=== PATIENT | female | born 1990 | race Caucasian/White ===

== ENCOUNTER → 2017-04-16 | Outpatient (REF) | payer OTHER ==
[2017-04-16 23:38] LABS: CHLAMYDIA DNA AMPLIFICATION NEGATIVE (NEGATIVE); GC DNA AMPLIFICATION NEGATIVE (NEGATIVE)
== END ==
LOC: M LAB REF 17:07
DX: Z11.3 Encounter for screening for infections with a predominantly sexual mode of transmission (principal)
CPT/HCPCS: 87591

== ENCOUNTER → 2018-01-14 | Outpatient (REF) | payer OTHER, MEDICAID ==
[2018-01-15 14:32] LABS: CHLAMYDIA DNA AMPLIFICATION NEGATIVE (NEGATIVE); GC DNA AMPLIFICATION NEGATIVE (NEGATIVE)
== END ==
LOC: M SMT 11:24
DX: R10.2 Pelvic and perineal pain (principal)
CPT/HCPCS: 87591

== ENCOUNTER → 2018-01-18 | Outpatient (CLI) | payer OTHER | LOC: M RAD 14:21 | DX: R10.2 Pelvic and perineal pain (principal); Z97.5 Presence of (intrauterine) contraceptive device | CPT/HCPCS: 76856 ==

== ENCOUNTER 2018-04-04 09:47 | Emergency (ER) | payer OTHER ==
[~2018-04-04] VITALS: Ht 162.6 cm; Wt 107.7 kg
[~2018-04-04 09:47] MED LIST: IBUP-1114 PO; MAPA500T2 PO; VITAPRTA PO; ZANTTAB PO
[2018-04-04 09:49] VITALS: BP 135/85
[2018-04-04] MEDS ORDERED: NAPR-885 PO (09:53)
[2018-04-04] MEDS ORDERED: MOBI4TAB PO (10:11)
[2018-04-04] MEDS ORDERED: CYCL10TA PO (10:11)
== END 2018-04-04 10:23 | disposition home or self-care (01) ==
LOC: M ED 09:47
DX: M54.6 Pain in thoracic spine (principal); M77.01 Medial epicondylitis, right elbow; R07.89 Other chest pain; Z97.5 Presence of (intrauterine) contraceptive device; Z72.0 Tobacco use; Z91.040 Latex allergy status; Z88.8 Allergy status to other drugs, medicaments and biological substances

== ENCOUNTER → 2018-04-17 | Outpatient (REF) | payer OTHER ==
[~2018-04-17] MED LIST changes: +CYCL10TA PO; +MOBI4TAB PO; +NAPR-885 PO
[2018-04-17 12:28] LABS: BASO # 0.1 10^3/uL (0.0-0.2); BASO % 0.9 % (0.0-1.0); EOS # 0.3 10^3/uL (0.0-0.50); EOS % 3.1 % (0.0-3.0); HEMATOCRIT 45.3 % (36.0-47.0); HEMOGLOBIN 14.8 g/dl (12.0-15.5); LYMPH # 2.8 10^3/uL (1.5-6.5); LYMPH % 26.1 % (24.0-44.0); MEAN CORPUSCULAR HEMOGLOBIN 28.1 pg (27.0-33.0); MEAN CORPUSCULAR HGB CONC 32.7 g/dl (32.0-36.5); MEAN CORPUSCULAR VOLUME 86.1 fl (80.0-96.0); MONO # 0.7 10^3/uL (0.0-0.8); MONO % 6.7 % (0.0-5.0); NEUTROPHILS # 6.7 10^3/uL (1.8-7.7); NEUTROPHILS % 62.3 % (36.0-66.0); PLATELET COUNT, AUTOMATED 269 10^3/uL (150-450); RED BLOOD COUNT 5.26 10^6/uL (4.00-5.40); WHITE BLOOD COUNT 10.8 10^3/uL (4.0-10.0)
[2018-04-17 13:04] LABS: ALT/SGPT 34 U/L (12-78); BILIRUBIN,TOTAL 0.5 MG/DL (0.2-1.0); BLOOD UREA NITROGEN 7 MG/DL (7-18); CALCIUM LEVEL 8.6 MG/DL (8.5-10.1); CARBON DIOXIDE LEVEL 26 MEQ/L (21-32); CHLORIDE LEVEL 105 MEQ/L (98-107); CHOLESTEROL LEVEL 124 MG/DL (<200); CHOLESTEROL RISK RATIO 2.883 (<5); CREATININE FOR GFR 0.85 MG/DL (0.55-1.30); GLOMERULAR FILTRATION RATE > 60.0 (>60); GLUCOSE, FASTING 100 MG/DL (70-100); HDL CHOLESTEROL 43 MG/DL (>40); LDL CHOLESTEROL 62 MG/DL (<100); NON-HDL-C 81 MG/DL; POTASSIUM SERUM 4.3 MEQ/L (3.5-5.1); SODIUM LEVEL 138 MEQ/L (136-145); TOTAL 25(OH) VITAMIN D 16.1 NG/ML (30.0-100.0); TOTAL PROTEIN 7.1 GM/DL (6.4-8.2); TRIGLYCERIDES LEVEL 95 MG/DL (<150)
== END ==
LOC: M LAB REF 12:02
PROVIDERS: ATTEND Nurse Practitioner Family
DX: Z13.9 Encounter for screening, unspecified (principal)

== ENCOUNTER → 2018-04-22 | Outpatient (CLI) | payer OTHER ==
--- NOTE | 2018-04-22 19:53 | REP ---
Focused right breast sonography: History: Diffuse nodular calcifications of breast. Right lower breast nodule. The patient reports a palpable lump at 8 o'clock for the last 5-6 weeks with tenderness. Sonographic findings: The right breast is scanned through the area of palpable lump and 7 o'clock to 9 o'clock. Heterogeneous fibroglandular background echotexture is seen. No cyst, mass, or acoustic shadowing is seen. Impression: BIRADS category one negative findings. Clinical follow-up is advised. This should not dissuade one from biopsy of a palpable lump depending on its clinical characteristics. Electronically Signed by Dl Malin MD 04/23/2018 08:10 A
== END ==
LOC: M RAD 12:26
PROVIDERS: ATTEND Nurse Practitioner Family
DX: N63.13 Unspecified lump in the right breast, lower outer quadrant (principal)

== ENCOUNTER 2018-06-02 21:32 | Emergency (ER) | payer OTHER ==
[~2018-06-02] VITALS: Ht 162.6 cm; Wt 104.5 kg
[2018-06-02] MEDS ORDERED: IBUPROFEN 600 MG TAB PO ONE (22:30)
[2018-06-02] MEDS ORDERED: ONDANSETRON 4 MG TAB (S0181) PO ONE (22:30)
[2018-06-02 22:41] LABS: INFLUENZA A AMPLIFICATION NEGATIVE (NEGATIVE); INFLUENZA B AMPLIFICATION NEGATIVE (NEGATIVE)
[2018-06-02 23:04] VITALS: BP 138/84
== END 2018-06-02 23:05 | disposition home or self-care (01) ==
LOC: M ED 21:32
DX: J06.9 Acute upper respiratory infection, unspecified (principal); E11.9 Type 2 diabetes mellitus without complications; Z88.8 Allergy status to other drugs, medicaments and biological substances; F17.210 Nicotine dependence, cigarettes, uncomplicated

== ENCOUNTER → 2018-06-05 | Outpatient (REF) | payer OTHER ==
[2018-06-05 18:05] LABS: INFLUENZA A AMPLIFICATION NEGATIVE (NEGATIVE); INFLUENZA B AMPLIFICATION NEGATIVE (NEGATIVE)
== END ==
LOC: M LAB REF 17:11
PROVIDERS: ATTEND Physician Assistant
DX: J11.1 Influenza due to unidentified influenza virus with other respiratory manifestations (principal)

== ENCOUNTER → 2018-11-14 | Outpatient (CLI) | payer OTHER ==
[~2018-11-14] MED LIST changes: +ZANT150T40 PO; -ZANTTAB PO
--- NOTE | 2018-11-14 22:41 | REP ---
Clinical: IUD placement Technique: Transvaginal examination for better evaluation of the endometrium and adnexa with color Doppler evaluation of the ovaries. Findings: Retroverted uterus measures 7.0 x 3.9 x 4.6 cm . The endometrial complex measures 7.3 mm thickness. No discrete uterine or endometrial abnormalities are appreciated. No IUD definitively identified. Bilateral ovaries are normal in appearance and vascularity without evidence for torsion. Right ovary measures 3.3 x 1.3 x 2.1 cm ; R I = 0.46 . Left ovary measures 3.5 x 1.6 x 2.1 cm ; R I = 0.48 . No pelvic fluid or adnexal mass lesion . Impression: 1. Retroverted uterus without obvious IUD identified. 2. Normal bilateral ovaries. Electronically Signed by Tevin Le MD 11/14/2018 10:32 P
== END ==
LOC: M RAD 11:24
PROVIDERS: ATTEND Nurse Practitioner Family
DX: Z30.431 Encounter for routine checking of intrauterine contraceptive device (principal)

== ENCOUNTER → 2018-12-04 | Outpatient (CLI) | payer OTHER ==
--- NOTE | 2018-12-04 16:48 | REP ---
Supine abdomen two views: Comparison is the abdomen and pelvis CT dated 01/23/2015. The bowel gas pattern is normal. There are no calcifications. Skeletal structures and soft tissues otherwise are unremarkable. Impression: Negative supine abdomen. Electronically Signed by Jg Combs MD 12/04/2018 04:40 P
== END ==
LOC: M RAD 09:07
PROVIDERS: ATTEND Nurse Practitioner Family
DX: Z30.431 Encounter for routine checking of intrauterine contraceptive device (principal)

== ENCOUNTER → 2018-12-20 | Outpatient (CLI) | payer OTHER ==
--- NOTE | 2018-12-20 11:47 | REP ---
REASON: Supervision of other normal . Pertinent priors none. Transvesical and transvaginal imaging was obtained. Within the ureters there is an anechoic structure with increased echoes surrounding it consistent with a decidual reaction. The mean gestational sac diameter is consistent with a 5 week 6 day gestational age. Doppler interrogation of the gestational sac shows no evidence of cardiac activity. The uterus overall measures 7.9 x 4.8 x 5.6 cm. Within the gestational sac there is a tiny anechoic structure consistent with a yolk sac. Right ovary measures 3.8 x 2.4 x 2.9 cm and is within normal limits. Within the substance of the right ovary there is a 2.7 x 2.0 x 2.2 cm sized mixed echo structure likely representing a corpus luteum cyst. Left ovary measures 3.5 x 1.1 x 1.1 cm and is within normal limits. The right ovarian RI is 0.52 and the left if 0.51. There is no free fluid in the cul-de-sac. IMPRESSION: Early OB ultrasound as described above. Electronically Signed by Tremaine Massey DO 12/20/2018 02:02 P
== END ==
LOC: M RAD 09:29
PROVIDERS: ATTEND Nurse Practitioner Family
DX: Z32.01 Encounter for pregnancy test, result positive (principal)

== ENCOUNTER → 2019-01-08 | Outpatient (CLI) | payer OTHER ==
[2019-01-08 10:03] LABS: BASO # 0.1 10^3/uL (0.0-0.2); BASO % 0.4 % (0.0-1.0); EOS # 0.2 10^3/uL (0.0-0.5); EOS % 1.5 % (0.0-3.0); HEMATOCRIT 38.2 % (36.0-47.0); HEMOGLOBIN 12.8 g/dl (12.0-15.5); LYMPH % 14.7 % (24.0-44.0); MEAN CORPUSCULAR HEMOGLOBIN 29.2 pg (27.0-33.0); MEAN CORPUSCULAR HGB CONC 33.5 g/dl (32.0-36.5); MONO # 0.8 10^3/uL (0.0-0.8); MONO % 6.1 % (0.0-5.0); NEUTROPHILS # 10.5 10^3/uL (1.5-8.5); NEUTROPHILS % 76.4 % (36.0-66.0); PLATELET COUNT, AUTOMATED 237 10^3/uL (150-450); RED BLOOD COUNT 4.39 10^6/uL (4.00-5.40); WHITE BLOOD COUNT 13.8 10^3/uL (4.0-10.0)
[2019-01-08 10:23] LABS: ALT/SGPT 29 U/L (12-78); BILIRUBIN,TOTAL 0.3 MG/DL (0.2-1.0); CREATININE FOR GFR 0.69 MG/DL (0.55-1.30); GLOMERULAR FILTRATION RATE > 60.0 (>60); LDH LACTATE DEHYDROGENASE 159 U/L (84-246); URIC ACID 3.8 MG/DL (2.6-6.0)
[2019-01-08 10:23] LABS: CREATININE,RANDOM URINE 92.1 MG/DL
[2019-01-08 10:44] LABS: RUBELLA IgG QUALITATIVE IMMUNE (IMMUNE)
[2019-01-08 11:12] LABS: HEPATITIS C VIRUS ABY INDEX 0.1 INDEX (<0.8)
[2019-01-08 11:13] LABS: HIV 1&2 SCREEN CENTAUR NEGATIVE (NEGATIVE)
[2019-01-08 12:29] LABS: CHLAMYDIA DNA AMPLIFICATION NEGATIVE (NEGATIVE); GC DNA AMPLIFICATION NEGATIVE (NEGATIVE)
== END ==
LOC: M LAB 09:25
PROVIDERS: ATTEND Advanced Practice Midwife
DX: Z34.81 Encounter for supervision of other normal pregnancy, first trimester (principal); Z3A.00 Weeks of gestation of pregnancy not specified

== ENCOUNTER 2019-01-23 05:22 | Emergency (ER) | payer OTHER ==
[~2019-01-23] VITALS: Ht 162.6 cm; Wt 105.3 kg
[2019-01-23 05:58] LABS: BASO # 0.1 10^3/uL (0.0-0.2); BASO % 0.5 % (0.0-1.0); EOS # 0.2 10^3/uL (0.0-0.5); EOS % 1.5 % (0.0-3.0); HEMATOCRIT 39.4 % (36.0-47.0); HEMOGLOBIN 13.2 g/dl (12.0-15.5); LYMPH # 2.4 10^3/uL (1.5-5.0); LYMPH % 19.9 % (24.0-44.0); MEAN CORPUSCULAR HEMOGLOBIN 29.1 pg (27.0-33.0); MEAN CORPUSCULAR HGB CONC 33.5 g/dl (32.0-36.5); MONO # 0.7 10^3/uL (0.0-0.8); MONO % 6.1 % (0.0-5.0); NEUTROPHILS # 8.4 10^3/uL (1.5-8.5); NEUTROPHILS % 71.2 % (36.0-66.0); PLATELET COUNT, AUTOMATED 226 10^3/uL (150-450); RED BLOOD COUNT 4.53 10^6/uL (4.00-5.40); WHITE BLOOD COUNT 11.9 10^3/uL (4.0-10.0)
[2019-01-23] MEDS ORDERED: ACETAMINOPHEN TAB 650MG DOSE (2X325MG) PO ONE (06:00)
[2019-01-23 06:27] LABS: ALBUMIN 3.4 GM/DL (3.2-5.2); ALT/SGPT 24 U/L (12-78); BILIRUBIN,DIRECT 0.1 MG/DL (0.0-0.2); BILIRUBIN,TOTAL 0.4 MG/DL (0.2-1.0); BLOOD UREA NITROGEN 5 MG/DL (7-18); CALCIUM LEVEL 8.8 MG/DL (8.5-10.1); CARBON DIOXIDE LEVEL 24 MEQ/L (21-32); CHLORIDE LEVEL 106 MEQ/L (98-107); CK-MB VALUE MASS < 1.0 NG/ML (<3.6); CPK CREATINE PHOSPHOKINASE 88 U/L (26-192); CREATININE FOR GFR 0.67 MG/DL (0.55-1.30); GLOMERULAR FILTRATION RATE > 60.0 (>60); GLUCOSE, FASTING 88 MG/DL (70-100); LIPASE 62 U/L (73-393); MB/CK RELATIVE INDEX 1.14 (< OR =4); POTASSIUM SERUM 3.6 MEQ/L (3.5-5.1); SODIUM LEVEL 136 MEQ/L (136-145); TOTAL PROTEIN 7.1 GM/DL (6.4-8.2); TROPONIN I < 0.02 NG/ML (< 0.10)
[2019-01-23 06:43] VITALS: BP 131/80
--- NOTE | 2019-01-23 06:47 | REPVR ---
PROCEDURE INFORMATION: Exam: US Duplex Lower Extremity Veins Exam date and time: 01/23/2019 6:23 AM Clinical history: 28 years old, female; Other: Chest pain; Additional info: chest pain R/O dvt TECHNIQUE: Imaging protocol: Real-time duplex ultrasound of the Lower Extremities with 2-D mccracken scale, color Doppler flow and spectral waveform analysis with image documentation. Complete exam focused on the bilateral lower extremity veins. COMPARISON: No relevant prior studies available. FINDINGS: Right deep veins: Unremarkable. The common femoral, femoral, proximal profunda femoral and popliteal veins are patent without thrombus. Normal Doppler waveforms. Normal compressibility and/or augmentation response. Right superficial veins: Saphenofemoral junction is patent without thrombus. Left deep veins: Unremarkable. The common femoral, femoral, proximal profunda femoral and popliteal veins are patent without thrombus. Normal Doppler waveforms. Normal compressibility and/or augmentation response. Left superficial veins: Saphenofemoral junction is patent without thrombus. Soft tissues: Unremarkable. IMPRESSION: No acute findings. No evidence of deep vein thrombosis. Electronically signed by: Joe Vidales On 01/23/2019 06:46:37 AM
--- NOTE | 2019-01-23 07:11 | ECGEPIP ---
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
== END 2019-01-23 07:10 | disposition home or self-care (01) ==
LOC: M ED 05:22
DX: R07.89 Other chest pain (principal); F17.200 Nicotine dependence, unspecified, uncomplicated; Z88.8 Allergy status to other drugs, medicaments and biological substances; Z91.040 Latex allergy status

== ENCOUNTER → 2019-02-28 | Outpatient (CLI) | payer OTHER | LOC: M LAB 10:17 | PROVIDERS: ATTEND Obstetrics & Gynecology | DX: O99.211 Obesity complicating pregnancy, first trimester (principal) ==

== ENCOUNTER → 2019-03-28 | Outpatient (CLI) | payer OTHER ==
--- NOTE | 2019-03-28 11:34 | REP ---
OB ULTRASOUND: Real-time sonographic evaluation of the gravid uterus is performed. There is a single living intrauterine gestation with an estimated gestational age 20 weeks 1 day, EDC 08/14/2019. Today's measurements indicate appropriate growth. Biometry and Growth: BPD 46 mm = 20 weeks 0 days 46th percentile HC 174 mm = 19 weeks 6 days, 44th percentile AC 154 mm = 20 weeks 4 days, 60th percentile FL 31 mm = 19 weeks 5 days, 39th percentile HC/AC ratio 1.13 within normal range. Estimated weight 332 grams, 47th percentile. SEEN/GROSSLY UNREMARKABLE Lateral ventricles Yes Posterior fossa Yes Upper lip No Four-chamber heart No LVOT No RVOT Yes Stomach Yes Cord insertion Yes Three vessel cord Yes Kidneys Yes Bladder Yes Spine No Cervical length: Closed and measures 2.9 cm in length. heart rate: 146 beats per minute. position: Breech. Placenta: Posterior and grade 0 with no previa or abruption. Amniotic fluid: Within normal limits. Electronically Signed by Jg Hodge MD 03/29/2019 03:13 P
== END ==
LOC: M RAD 10:03
PROVIDERS: ATTEND Specialist
DX: Z34.92 Encounter for supervision of normal pregnancy, unspecified, second trimester (principal); Z36.89 Encounter for other specified antenatal screening; Z3A.20 20 weeks gestation of pregnancy

== ENCOUNTER 2019-05-05 18:34 | Outpatient (CLI) | payer OTHER ==
[~2019-05-05] VITALS: Ht 160 cm; Wt 100.7 kg
[2019-05-05 18:59] VITALS: BP 122/80
[2019-05-05] MEDS ORDERED: FIORINAL PO (19:23)
[2019-05-05] MEDS ORDERED: TUMS750C5 PO (19:23)
[2019-05-05] MEDS ORDERED: ACET-683 PO (19:23)
[2019-05-05] MEDS ORDERED: KP P1TAB PO (19:23)
[2019-05-05] MEDS ORDERED: ONDANSETRON 4 MG ORAL DISINTEGRATING TAB (Q0162 PER 1MG) PO ONE (19:30)
[2019-05-05 20:00] LABS: APPEARANCE, URINE CLEAR (CLEAR); BACTERIA, URINE AUTO NEGATIVE (NEGATIVE); BILIRUBIN, URINE AUTO NEGATIVE (NEGATIVE); BLOOD, URINE BLOOD NEGATIVE (NEGATIVE); COLOR, URINE YELLOW (YELLOW); GLUCOSE, URINE (UA) AUTO NEGATIVE (NEGATIVE); KETONE, URINE AUTO 2+ mg/dL (NEGATIVE); LEUKOCYTE ESTERASE, URINE AUTO NEGATIVE (NEGATIVE); MUCUS, URINE SMALL (NEGATIVE); NITRITE, URINE AUTO NEGATIVE (NEGATIVE); PROTEIN, URINE AUTO 1+ mg/dL (NEGATIVE); RBC, URINE AUTO 1 /HPF (0-3); SPECIFIC GRAVITY URINE AUTO 1.027 (1.002-1.035); SQUAMOUS EPITHELIAL CELL UR AU 1 /HPF (0-6); WBC, URINE AUTO 1 /HPF (0-3)
[2019-05-05 20:28] LABS: INFLUENZA A AMPLIFICATION NEGATIVE (NEGATIVE); INFLUENZA B AMPLIFICATION POSITIVE (NEGATIVE)
[2019-05-05] MEDS ORDERED: ONDANSETRON 4MG/2ML VIAL (J2405) IV ONE (20:30)
[2019-05-05] MEDS ORDERED: LR 1,000 ML IV ONE (20:30)
[2019-05-05 21:01] LABS: HEMATOCRIT 35.1 % (36.0-47.0); HEMOGLOBIN 11.8 g/dl (12.0-15.5); MEAN CORPUSCULAR HEMOGLOBIN 28.9 pg (27.0-33.0); MEAN CORPUSCULAR HGB CONC 33.6 g/dl (32.0-36.5); PLATELET COUNT, AUTOMATED 193 10^3/uL (150-450); RED BLOOD COUNT 4.08 10^6/uL (4.00-5.40); WHITE BLOOD COUNT 16.8 10^3/uL (4.0-10.0)
[2019-05-05 21:06] VITALS: BP 120/65
[2019-05-05] MEDS: OSELTAMIVIR PHOSPHATE 75 MG CAP (TAMIFLU) PO ONE ×2 (21:24→21:48)
[2019-05-05 21:48] LABS: ALT/SGPT 18 U/L (12-78); BILIRUBIN,TOTAL 0.4 MG/DL (0.2-1.0); BLOOD UREA NITROGEN 7 MG/DL (7-18); CALCIUM LEVEL 8.6 MG/DL (8.5-10.1); CARBON DIOXIDE LEVEL 25 MEQ/L (21-32); CHLORIDE LEVEL 107 MEQ/L (98-107); CREATININE FOR GFR 0.58 MG/DL (0.55-1.30); GLOMERULAR FILTRATION RATE > 60.0 (>60); GLUCOSE, FASTING 80 MG/DL (70-100); SODIUM LEVEL 139 MEQ/L (136-145); TOTAL PROTEIN 6.4 GM/DL (6.4-8.2)
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
[2019-05-05] MEDS ORDERED: OSEL75CA PO (23:53)
[2019-05-06 00:21] VITALS: BP 125/59
[2019-05-06] MEDS ORDERED: ZOFR4TAB16 PO (03:09)
== END 2019-05-06 00:25 | disposition home or self-care (01) ==
LOC: M LDO 18:34
PROVIDERS: ATTEND Advanced Practice Midwife
DX: O21.8 Other vomiting complicating pregnancy (principal); Z3A.25 25 weeks gestation of pregnancy; O99.332 Smoking (tobacco) complicating pregnancy, second trimester; F17.200 Nicotine dependence, unspecified, uncomplicated; O99.512 Diseases of the respiratory system complicating pregnancy, second trimester; J11.1 Influenza due to unidentified influenza virus with other respiratory manifestations
CPT/HCPCS: 36415; 59025; 80053; 81001; 85027; 87086; 87631; 96361; 96374; 96376; J2405; Q0162

== ENCOUNTER → 2019-05-15 | Outpatient (CLI) | payer OTHER ==
[~2019-05-15] MED LIST changes: +ACET-683 PO; +FIORINAL PO; +KP P1TAB PO; +OSEL75CA PO; +TUMS750C5 PO; +ZOFR4TAB16 PO
--- NOTE | 2019-05-15 13:47 | REP ---
Obstetric sonography: History: Supervision of followup anatomy. Heart, lip, outflow tracts, spine. Findings: Scanning through the gravid uterus demonstrates a single living intrauterine gestation in a breech lie. motion is observed and heart rate is recorded at 124 beats per minute. A posterior grade 0 placenta is seen without evidence of previa or abruption. Amniotic fluid is subjectively normal. Closed cervical length is 3.8 cm measured transabdominally. There has been appropriate interval growth. No extrauterine abnormalities observed. nose and lips and spine views are felt to be unremarkable today. Four-chamber heart and left ventricular outflow tract views were again not visualized due to position. Biometry chart: BPD 6.7 cm = 27 weeks 0 days Head circumference 24.8 cm = 26 weeks 6 days Abdominal circumference 22.6 cm = 27 weeks 0 days Femur length 5.0 cm = 26 weeks 6 days Humeral length 4.6 cm = 27 weeks 0 days HC/AC ratio normal 1.10. Cephalic index normal 0.75. Estimated weight 1002 grams, 2 pounds 3 ounces, 42nd percentile for 27 weeks 0 days. Impression: Viable single intrauterine gestation at 26 weeks 4 days by today's composite sonographic criteria. Expected gestational age estimate based on prior sonography is 27 weeks 0 days. Four-chamber heart and left ventricular outflow tract views are still less than optimally seen. Breech lie.
== END ==
LOC: M WHC 10:25
PROVIDERS: ATTEND Advanced Practice Midwife
DX: O32.1XX0 Maternal care for breech presentation, not applicable or unspecified (principal); Z36.2 Encounter for other antenatal screening follow-up; Z3A.27 27 weeks gestation of pregnancy

== ENCOUNTER → 2019-05-15 | Outpatient (CLI) | payer OTHER ==
[2019-05-15 11:49] LABS: HEMATOCRIT 32.5 % (36.0-47.0); HEMOGLOBIN 10.7 g/dl (12.0-15.5); MEAN CORPUSCULAR HEMOGLOBIN 28.9 pg (27.0-33.0); MEAN CORPUSCULAR HGB CONC 32.9 g/dl (32.0-36.5); MEAN CORPUSCULAR VOLUME 87.8 fl (80.0-96.0); PLATELET COUNT, AUTOMATED 201 10^3/uL (150-450)
== END ==
LOC: M PLALAB 09:33
PROVIDERS: ATTEND Advanced Practice Midwife
DX: Z34.92 Encounter for supervision of normal pregnancy, unspecified, second trimester (principal); Z3A.00 Weeks of gestation of pregnancy not specified

== ENCOUNTER → 2019-06-24 | Outpatient (CLI) | payer OTHER ==
--- NOTE | 2019-06-24 11:11 | REP ---
REASON: Followup anatomy. The prior exams to fail to optimally visualize four chamber heart and left ventricular outflow tract. Multiple ultrasonographic images of the gravid uterus show a single living intrauterine gestational in the nunu breech presentation. Doppler interrogation of the heart shows a heart rate of 149 beats per minute. The placenta is posterior and not low lying the cervix measures 3.2 cm in length and is closed. The subjective amniotic fluid volume is within normal limits. The calculated amniotic fluid index is 11.5 with an expected range 8.4-24.4. BPD 8.2 cm = 32 weeks 6 days HC 30.1 cm = 33 weeks 2 days AC 28.6 cm = 32 weeks 4 days FL 6.1 cm = 31 weeks 3 days The estimated weight is 1954 grams which is at the 37th percentile for a 32 week 5 day gestational age. Once again, the four chamber heart and left ventricular outflow tracts were not optimally visualized. IMPRESSION: Single living intrauterine gestation as described above with an estimated gestational age of 32 weeks day via composite criteria. No LOVE was formulated by today's exam. Once again, four chamber heart and left ventricular outflow tract were not optimally visualized. Followup is recommended.
== END ==
LOC: M WHC 09:31
PROVIDERS: ATTEND Advanced Practice Midwife
DX: Z34.93 Encounter for supervision of normal pregnancy, unspecified, third trimester (principal); Z3A.32 32 weeks gestation of pregnancy

== ENCOUNTER → 2019-07-22 | Outpatient (REF) | payer OTHER ==
[~2019-07-22] MED LIST changes: +CYCL-707 PO; -CYCL10TA PO
== END ==
LOC: M SFHCWAGY 17:18
PROVIDERS: ATTEND Advanced Practice Midwife
DX: Z34.93 Encounter for supervision of normal pregnancy, unspecified, third trimester (principal)

== ENCOUNTER 2019-08-03 22:14 | Outpatient (CLI) | payer OTHER ==
[~2019-08-03] VITALS: Ht 162.6 cm; Wt 110.4 kg
[2019-08-03 22:29] VITALS: BP 123/83
== END 2019-08-03 23:58 | disposition home or self-care (01) ==
LOC: M LDO 22:14
PROVIDERS: ATTEND Obstetrics & Gynecology
DX: O36.8130 Decreased fetal movements, third trimester, not applicable or unspecified (principal); Z3A.38 38 weeks gestation of pregnancy

== ENCOUNTER 2019-08-10 16:30 | Inpatient (IN) | payer OTHER ==
[~2019-08-10] VITALS: Ht 162.6 cm; Wt 109.4 kg
[2019-08-10 17:01] VITALS: BP 133/83
[2019-08-10] MEDS ORDERED: OMEP1CAP93 PO (17:29)
[2019-08-10 17:54] VITALS: BP 121/75
[2019-08-10 18:40] LABS: HEMATOCRIT 34.7 % (36.0-47.0); HEMOGLOBIN 11.4 g/dl (12.0-15.5); MEAN CORPUSCULAR HEMOGLOBIN 27.1 pg (27.0-33.0); MEAN CORPUSCULAR HGB CONC 32.9 g/dl (32.0-36.5); MEAN CORPUSCULAR VOLUME 82.6 fl (80.0-96.0); PLATELET COUNT, AUTOMATED 224 10^3/uL (150-450); WHITE BLOOD COUNT 16.4 10^3/uL (4.0-10.0)
[2019-08-10] MEDS: LR 1,000 ML IV SCH (19:36)
[2019-08-10 20:05] VITALS: BP 106/60
[2019-08-10] MEDS: miSOPROStol 50 MCG 1/2 TAB (S0191) SL SCH (20:21)
[2019-08-10 22:23] VITALS: BP 126/76
[2019-08-11] VITALS (39 sets, daily range): BP systolic 101–157; BP diastolic 54–87
[2019-08-11] MEDS: miSOPROStol 50 MCG 1/2 TAB (S0191) SL SCH ×2 (00:23→04:40)
[2019-08-11] MEDS: LR 1,000 ML IV SCH ×3 (04:18→15:25)
[2019-08-11] MEDS ORDERED: PENICILLIN G POTASSIUM IV 5 MU in D5W MINI-BAG PLUS 100 ML IV STA (08:36)
--- NOTE | 2019-08-11 08:36 | IPNPDOC ---
Obstetrical Progress Note Date of Service August 11, 2019 Subjective Patient reports she feel some of her contractions but is coping well. She desires an epidural when IV Pitocin is started. Objective Vital Signs Date Time Temp Pulse Resp B/P (MAP) Pulse Ox O2 Delivery O2 Flow Rate FiO2 08/11/19 08:20 97.7 107 16 115/68 (84) 08/11/19 06:41 17 Assessment Heart Rate (FHR): 135 Variability: Moderate Accelerations: Positive Decelerations: None Heart Rate Tracing: Category I Tocometer Contractions: Yes Frequency: regular Sterile Vaginal Examination Dilation: 3 cm Effacement (%): other (75%) Station: -1 Cervical Consistency: Soft Cervical Position: Anterior Postion/Presentation: Cephalic presentation Assessment and Plan Age: 29 EGA at Admission: 39.3 Weeks & Days 39.4 Status: Reassuring Group B Streptococcus: Positive Anticipate: Vaginal Delivery Additional Comments GBS prophylaxis to be started. IV Pitocin to be started. Clear liquid diet ordered. Consider AROM after 4 hour. Anesthesia consulted. ANGEL OLIVIER CNM August 11, 2019 08:36
[2019-08-11] MEDS ORDERED: OXYTOCIN DRIP 30 UNITS in IV 1 EA IV SCH ×2 (08:45→20:38)
[2019-08-11] MEDS ORDERED: FENTANYL 2MCG/ML ROPIVACAINE 0.2% IN 0.9% NACL 100ML IVBAG As Ordered ONE (09:24)
[2019-08-11] MEDS ORDERED: EPIDURAL/PCA KEYS XX PRN (10:30)
[2019-08-11] MEDS ORDERED: FENTANYL/ROPIVACAINE/NACL BAG 100 ML EPIDURAL SCH (10:30)
[2019-08-11] MEDS ORDERED: ONDANSETRON 4MG/2ML VIAL IV PRN (10:30)
[2019-08-11] MEDS ORDERED: EPIDURAL COMMENT XX SCH (10:30)
[2019-08-11] MEDS ORDERED: LACTATED RINGER'S 1000 ML IV PRN (10:30)
[2019-08-11] MEDS ORDERED: ePHEDrine SULFATE 25 MG/5 ML(5MG/ML) SYRINGE IV PRN (10:30)
[2019-08-11] MEDS ORDERED: diphenhydrAMINE 50MG/ML VIAL (J1200) IV PRN (10:30)
[2019-08-11] MEDS ORDERED: NALOXONE INJ 0.4MG/1ML VIAL (J2310 PER 1MG) IV PRN (10:30)
[2019-08-11] MEDS ORDERED: REFRIGERATOR IV KEYS XX PRN (10:30)
[2019-08-11] MEDS: PENICILLIN G POTASSIUM IV 2.5 MU in IV 1 EA IV SCH ×2 (13:00→17:00)
--- NOTE | 2019-08-11 15:49 | IPNPDOC ---
Obstetrical Progress Note Date of Service August 11, 2019 Subjective Patient is comfortable with her epidural. Objective Vital Signs Date Time Temp Pulse Resp B/P (MAP) Pulse Ox O2 Delivery O2 Flow Rate FiO2 08/11/19 12:58 977.0 100 18 131/86 (101) 08/11/19 06:41 17 Assessment Heart Rate (FHR): 120 Variability: Moderate Accelerations: Positive Decelerations: None Heart Rate Tracing: Category I Tocometer Contractions: Yes Frequency: regular, other (2-4 minutes) Strength: palpated as moderate Sterile Vaginal Examination Dilation: 4 cm Effacement (%): other (75%) Station: -1 Cervical Consistency: Soft Cervical Position: Anterior Postion/Presentation: Cephalic presentation Assessment and Plan EGA at Admission: 39.4 Status: Reassuring Group B Streptococcus: Positive Anticipate: Vaginal Delivery Additional Comments AROM to a moderate amount of clear fluid. IV Pitocin is a 16 mu/min. ANGEL OLIVIER CNM August 11, 2019 15:49
--- NOTE | 2019-08-11 18:45 | IPNPDOC ---
Obstetrical Progress Note Date of Service August 11, 2019 Subjective Patient reports some pressure but is frustrated due to not being able to feel her left leg much. Her epidural has been turned off and anesthesia will be up to evaluate her again. She is frustrated because she thinks her induction is taking too long. Objective Vital Signs Date Time Temp Pulse Resp B/P (MAP) Pulse Ox O2 Delivery O2 Flow Rate FiO2 08/11/19 16:51 97.6 82 18 107/61 (76) 08/11/19 06:41 17 Assessment Heart Rate (FHR): 120 Variability: Moderate Accelerations: Positive Decelerations: None Heart Rate Tracing: Category I Tocometer Contractions: Yes Frequency: regular Sterile Vaginal Examination Dilation: 5 cm (5-6 cm) Effacement (%): 80% Station: -1 Cervical Consistency: Soft Cervical Position: Anterior Postion/Presentation: Cephalic presentation Assessment and Plan Age: 29 EGA at Admission: 39.4 Status: Reassuring Group B Streptococcus: Positive Anticipate: Vaginal Delivery Additional Comments IV Pitocin is at 20 mu/min. Reviewed with patient that inductions take time. Reviewed that she is changing and her progression for her labor pattern is normal at this point. ANGEL OLIVIER CNM August 11, 2019 18:45
[2019-08-11] MEDS ORDERED: ACETAMINOPHEN 500 MG TAB PO PRN (20:45)
[2019-08-11] MEDS ORDERED: DOCUSATE SODIUM 100 MG CAP PO PRN (20:45)
[2019-08-11] MEDS ORDERED: METHYLERGONOVINE MALEATE 0.2 MG/ML VIAL (J2210) IM PRN (20:45)
[2019-08-11] MEDS ORDERED: IBUPROFEN 600 MG TAB PO PRN (20:45)
[2019-08-11] MEDS ORDERED: ACETAMINOPHEN TAB 650MG DOSE (2X325MG) PO PRN (20:45)
[2019-08-11] MEDS ORDERED: MEASLES,MUMPS,RUBELLA VACCINE INJ (MMR-II) (90707) SC SCH (20:45)
[2019-08-11] MEDS ORDERED: DIBUCAINE 1% OINTMENT 30GM TOP PRN (20:45)
[2019-08-11] MEDS ORDERED: RHOGAM 300 MCG (1500 IU) INJ (J2790) IM SCH (20:45)
[2019-08-11] MEDS ORDERED: METHYLERGONOVINE MALEATE 0.2 MG TAB PO PRN (20:45)
[2019-08-11] MEDS ORDERED: ANUSOL HC CREAM 30GM TOP PRN (20:45)
--- NOTE | 2019-08-11 21:00 | DNPDOC ---
[facility] Delivery Note Delivery Note DATE OF DELIVERY: 08/11/19 at 2004 PREDELIVERY DIAGNOSIS: 39-4/7 weeks' gestation and labor. POST DELIVERY DIAGNOSIS: Delivered. PROCEDURE: Spontaneous vaginal delivery. SHEET METAL WORKER HELPER: Angel Carranza CNM, LINO ANESTHESIA: epidural ESTIMATED BLOOD LOSS: 400 mL. FINDINGS: 7 pounds 15 ounces; 3590 grams; male , Score 9/9. DELIVERY SUMMARY: Patient is a 29-year-old female who is now a who presented for an elective IOL. She received 3 doses of cytotec and IV Pitocin for IOL. She requested an epidural and had to have it turned off and then back on due to numbness in her left leg. She progressed to fully dilated at 195 and pushed to a living male in the OA position with restitution to ROT. The anterior shoulder delivered with ease and the corpus immediately followed at 2004. The baby was placed on the maternal abdomen active and crying with stimulation. The cord was clamped x2 after pulsation ceased and cut by the FOB. A 3-vessel cord was noted. The placenta delivered spontaneously and intact at 2009. Uterine hemostasis was achieved via rapid infusion of IV Pitocin and fundal massage. The vagina, perineum, and cervix was inspected and found to be intact. The mom and baby are both in stable condition. All counts of instruments and sponges are correct. ANGEL CARRANZA CNM August 11, 2019 21:00
[2019-08-11] MEDS: IBUPROFEN 800 MG TAB PO PRN (21:04)
[2019-08-12] MEDS: IBUPROFEN 800 MG TAB PO PRN (04:54)
[2019-08-12 06:06] VITALS: BP 102/59
[2019-08-12] MEDS ORDERED: PRENATAL VITAMINS CHEWABLE TABLET PO SCH (09:00)
--- NOTE | 2019-08-12 11:31 | IPNPDOC ---
Progress Note Date of Service: August 12, 2019 Day#: 1 Progress Note SUBJECT: Patient is a 29-year-old female who presented for an IOL. She received 3 doses of Cytotec and IV Pitocin for induction. She had an epidural. Her was uncomplicated. She had a of a living male yesterday. She reports no pain currently. She has been ambulating and voiding without any difficulty. OBJECTIVE: VITAL SIGNS: Within normal limits, afebrile. Alert and oriented times three. Breath sounds clear to auscultation. Heart rate: Regular rate and rhythm, no murmurs, rubs or gallops. Abdomen: Fundus firm at U. Soft, NTTP. Minimal lochia. ASSESSMENT: day 1 PLAN: 1. Anticipate discharge to home tomorrow. 2. Continue with supportive nursing care. VS, I&O, 24H, Fishbone Vital Signs/I&O Vital Signs Date Time Temp Pulse Resp B/P (MAP) Pulse Ox O2 Delivery O2 Flow Rate FiO2 08/12/19 06:06 97.8 75 17 102/59 (73) 08/11/19 22:45 96 I&O- Last 24 Hours up to 6 AM 08/12/19 06:00 Intake Total 6161 ml Output Total 3025 ml Balance 3136 ml ANGEL OLIVIER CNM August 12, 2019 11:31
== END 2019-08-12 21:20 | disposition home or self-care (01) | DRG 560 ==
LOC: M LDI 16:30 → M OBS 08-11 22:31
PROVIDERS: ADMIT Specialist; ATTEND Specialist
PROC: 3E033VJ Introduction of Other Hormone into Peripheral Vein, Percutaneous Approach (ICD-10-PCS; 2019-08-10)
PROC: 3E0DXGC Introduction of Other Therapeutic Substance into Mouth and Pharynx, External Approach (ICD-10-PCS; 2019-08-10)
PROC: 10E0XZZ Delivery of Products of Conception, External Approach (ICD-10-PCS; principal; 2019-08-11)
DX: O80 Encounter for full-term uncomplicated delivery (principal); Z37.0 Single live birth; Z3A.39 39 weeks gestation of pregnancy

== ENCOUNTER → 2020-05-06 | Outpatient (REF) | payer OTHER ==
[~2020-05-06] MED LIST changes: +OMEP1CAP93 PO
[2020-05-06 18:14] LABS: BASO # 0.1 10^3/uL (0.0-0.2); BASO % 0.8 % (0.0-1.0); EOS # 0.4 10^3/uL (0.0-0.5); EOS % 3.3 % (0.0-3.0); HEMATOCRIT 41.5 % (36.0-47.0); HEMOGLOBIN 13.4 g/dl (12.0-15.5); LYMPH # 3.8 10^3/uL (1.5-5.0); LYMPH % 29.8 % (24.0-44.0); MEAN CORPUSCULAR HEMOGLOBIN 27.7 pg (27.0-33.0); MEAN CORPUSCULAR HGB CONC 32.3 g/dl (32.0-36.5); MEAN CORPUSCULAR VOLUME 85.7 fl (80.0-96.0); MONO # 1.1 10^3/uL (0.0-0.8); MONO % 8.2 % (2.0-8.0); NEUTROPHILS # 7.4 10^3/uL (1.5-8.5); NEUTROPHILS % 57.1 % (36.0-66.0); PLATELET COUNT, AUTOMATED 233 10^3/uL (150-450); RED BLOOD COUNT 4.84 10^6/uL (4.00-5.40); WHITE BLOOD COUNT 12.8 10^3/uL (4.0-10.0)
[2020-05-06 18:37] LABS: FREE T4 0.96 NG/DL (0.76-1.46); THYROID STIMULATING HORMONE 1.1 uIU/ML (0.358-3.740)
== END ==
LOC: M PLALAB 14:56
PROVIDERS: ATTEND Nurse Practitioner Women's Health
DX: N93.9 Abnormal uterine and vaginal bleeding, unspecified (principal); N92.1 Excessive and frequent menstruation with irregular cycle

== ENCOUNTER → 2020-05-13 | Outpatient (CLI) | payer OTHER ==
--- NOTE | 2020-05-13 10:33 | REP ---
INDICATION: N92.1 EXCESSIVE,FREQUENT AND IRREGULAR MENTRUATION. COMPARISON: None. TECHNIQUE: Transabdominal and transvaginal scanning were performed. FINDINGS: Uterine dimensions are normal at 6.8 x 3.7 x 5.3 cm. Endometrial echo is 0.2 cm thick and centrally placed. No free fluid is seen in the cul-de-sac. Visualized bladder butts are smooth. Retroverted uterus. The right ovary has dimensions of 3.7 x 2.0 x 3.5 cm. It's Doppler flow is normal. The left ovary dimensions are normal as well at 3.7 x 1.9 x 2.1 cm. It's Doppler flow was normal. Multiple small subcentimeter follicles are seen in each ovary. IMPRESSION: Normal pelvic sonography. Retroverted uterus. <Electronically signed by Nic Malin > 05/13/20 [id number]
== END ==
LOC: M WHC 07:39
PROVIDERS: ATTEND Nurse Practitioner Women's Health
DX: N92.1 Excessive and frequent menstruation with irregular cycle (principal)